=== PATIENT | female | born 1960 | race Caucasian/White ===

== ENCOUNTER 2017-05-20 10:43 | Emergency (ER) | payer BC ==
[~2017-05-20] VITALS: Ht 165.1 cm; Wt 74.8 kg
[~2017-05-20 10:43] MED LIST: ALIGN4 MG PO; BACLOFEN 10MG T10 MG PO; BISOPROLOL/HCTZ1 TA1 PO; NAPROXEN EC500 MG PO; PROPRANOLOL HCL20 MG PO
[2017-05-20] MEDS ORDERED: SERTRALINE 100100 MG PO (10:53)
--- NOTE | 2017-05-20 10:55 | Emergency Room Report ---
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 N Clinical Suspician of Infection? N Mental Status: 1 - Regular (Normal Baseline) Sepsis Risk:Low Sepsis Risk Have you (or family members/close friends) recently traveled outside the [place]? N If Yes, where/when: Have you had exposure to infectious disease within the past month? TB? Other? Specify: Comment The patient complains of pain in her LEFT flank and abdomen onset on Friday 2 days ago. She has not had vomiting. She has chronic diarrhea which is unchanged, no blood. No fever. No urinary symptoms. She has a history of Crohn's disease, prior bowel resection. She has been admitted here in 2006 and 2014 for partial small bowel obstruction. This pain is somewhat different in location, and is not accompanied by her typical vomiting with those conditions. ALLERGIES Coded Allergies: Iodine and Iodide Containing Produc (Mild, 05/20/17) codeine (Mild, 05/20/17) pentazocine (From TALWIN) (Mild, 05/20/17) Home Medications Active Scripts Bifidobacterium Infantis (Align) 4 MG PO DAILY #30 CAP Ref 1 Prov: 06/01/15 Reported Medications Sertraline Hydrochloride (Sertraline 100MG) 100 MG PO DAILY #30 Propranolol Hcl (Inderal 20MG. Tablet) 20 MG PO DAILY #60 BACLOFEN (Baclofen) 10 MG PO TID Propranolol Hcl 20 MG PO BID History Medical History General CAD? No Angina: No [place]: No Hypertension? Yes Hyperlipidemia? No CHF? No DVT? No PE? No COPD? No Asthma? No Anemia? Yes GERD? Yes Gastric ulcers? No GI Bleed? No Hernia? No Thyroid Problems? No Hypothyroidism? No CVA? No Seizures? No Diabetes? Yes Insulin Dependent: No Insulin Pump: No Home FSBS? No Renal Insuffiency? No End Stage Renal Disease? No UTI? No Stones? No BPH? No GB Disease: No Nephritic Syndrome? No Asplenia? No Hepatitis? No Sickle Cell Disease? No Arthritis? No Migraines? Yes Cataracts? No Glaucoma? No MRSA? No HIV? No TB? No Anxiety? Yes Depression? No Cancer? No More? 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 Physical Exam Vital Signs Vital Signs Date Time Temp Pulse Resp B/P Pulse O2 O2 Flow FiO2 Ox Delivery Rate 05/20 1311 98.0 78 18 152/92 98 05/20 1309 18 05/20 1126 78 18 152/92 98 05/20 1120 18 05/20 1048 98.0 83 18 156/107 99 General Appearance no apparent distress Eye Exam - bilateral eye normal exam, bilateral eye PERRL, bilateral eye EOMI Ear, Nose, Throat hearing grossly normal, normal ENT inspection Neck normal inspection, non-tender, supple, full range of motion Respiratory Status Yes: trachea midline, chest symmetrical. No: respiratory distress. Lung Sounds bilateral: normal breath sounds, lungs clear. Cardiovascular normal exam, regular rate/rhythm, no peripheral edema, no gallop, no JVD, no murmur, no rub, normal peripheral pulses Gastrointestinal normal bowel sounds, soft, no organomegaly, no guarding, no rebound, tenderness (LEFT lower quadrant) Back no CVA tenderness Extremities normal inspection Neurologic alert, oriented x 3 Mental status normal mood/affect Skin intact, normal color, warm/dry Medical Decision Making LABS/Meds/Orders Pt receiving controlled substance in ED? Yes [place] was queried for this patient? No Reason not queried - emergent pt cond=no time Results/Orders Laboratory Tests 05/20/17 1235: Urine Color YELLOW, Urine Appearance CLEAR, Urine pH 6.0, Ur Specific [place] 1.025, Urine Protein NEGATIVE, Urine Ketones NEGATIVE, Urine Blood TRACE-INTACT, Urine Nitrate NEGATIVE, Urine Bilirubin NEGATIVE, Urine Urobilinogen 0.2, Ur Leukocyte Esterase NEGATIVE, Urine RBC OCC, Urine WBC OCC, Ur Squamous Epith Cells NONE, Urine Bacteria TRACE, Urine Glucose NEGATIVE 05/20/171114: Sodium 141, Potassium 4.0, Chloride 105, Carbon Dioxide 28, BUN 8, Creatinine 0.9, Estimated Creat Clear 81, Estimated GFR (MDRD) 64, Glucose 93, Calcium 9.1, Total Bilirubin 0.5, AST 21, ALT 23, Alkaline Phosphatase 100, Total Protein 7.6 , Albumin 3.6, Globulin 4.0 H, Albumin/Globulin Ratio 0.9 L, Amylase 39, Lipase 145, WBC 5.1, RBC 4.26, Hgb 12.5, Hct 38.7, MCV 90.8, RDW 12.8, Plt Count 247, MPV 7.1 L, Gran % 55.5, Gran # 2.8, Lymphocytes % 36.5, Monocytes % 5.0, Eosinophils % 2.4, Basophils % 0.6, Lymphocytes # 1.9, Monocytes # 0.3, Eosinophils # 0.1, Basophils # 0.0, PUBS MCHC 32.4, MCH 29.4 Current Medication Orders Sig/Rosalba Start time Last Medication Dose Route Stop Time Status Admin Methylprednisolone 125 MG ONCE ONE 05/20 1300 DC 05/20 Sodium Succinate IV 05/20 1301 1308 Methylprednisolone 0 .STK-MED ONE 05/20 1300 DC Sodium Succinate .ROUTE Morphine Sulfate 4 MG ONCE ONE 05/20 1300 DCr 05/20 IV 05/20 1301 1309 Morphine Sulfate 0 .STK-MED ONE 05/20 1300 DCr .ROUTE Sodium Chloride 1,000 ML .STK-MED ONE 05/20 1120 DC IV Morphine Sulfate 0 .STK-MED ONE 05/20 111 DCr .ROUTE Ondansetron HCl 0 .STK-MED ONE 05/20 1119 DC .ROUTE Morphine Sulfate 4 MG ONCE ONE 05/20 1115 DCr 05/20 IV 05/20 1116 1120 Ondansetron HCl 4 MG ONCE ONE 05/20 1115 DC 05/20 IV 05/20 1116 1120 Sodium Chloride 1,000 ML .Q1H1M 05/20 111 DC 05/20 IV 05/20 1215 1121 Sodium Chloride 10 ML PRN PRN 05/20 1100 DCD IV 05/21 1056 Orders Procedure Date/time Status DIET-NOTHING BY MOUTH 05/[address] ABD/PELVIS REQ 05/20 1107 Active URINALYSIS/COMPLETE 05/20 1107 Complete IV SALINE LOCK 05/20 1056 Active LIPASE 05/20 1056 Complete CBC WITH AUTO DIFF 05/20 1056 Complete CHEM 12 PROFILE 05/20 1056 Complete AMYLASE 05/20 1056 Complete XRAY/CT/US XRAY/CT/US CT abdomen, pelvis Comment CT scan interpreted by radiologist: Scattered air-fluid levels in the small bowel consistent with enteritis. Departure Departure Disposition DC Home or Self Care(routine) Clinical Impression Primary Impression: Exacerbation of Crohn's disease Qualifiers: Digestive disease complication type: without complication Qualified Code: K50.90 - Crohn's disease, unspecified, without complications Condition STABLE Patient Instructions DI for Crohn's Disease Flare Additional Instructions Additional instructions for ABDOMINAL PAIN: See your physician as soon as possible for further evaluation. Return immediately if worsening abdominal pain, vomiting, shortness of breath, fever, vomiting of blood or abdominal distention. Prescriptions Current Visit Scripts Prednisone (Prednisone 10MG) 10 MG PO DAILY #27 TAB 6 po on days 1-2, then decrease dose by 1 pill per day until gone HYDROCODONE/ACETAMINOPHEN ([place] 5-325 Tablet) 1 TAB PO Q6HP PRN pain #10 TAB Ondansetron (Zofran 4MG Odt) 4 MG PO Q8HP PRN NAUSEA AND VOMITING #10 ODT ED Critical Care Critical Care No at 1540
[2017-05-20] MEDS ORDERED: INDERAL 20MG. T20 MG PO (10:58)
[2017-05-20 11:24] LABS: HEMOGLOBIN 12.5 g/dL (12.2-16.2); LYMPH # 1.9 K/mm3 (0.7-4.5); LYMPH % 36.5 % (10-50.0)
--- NOTE | 2017-05-20 12:03 | RADIOLOGY REPORT PS360 ---
CT ABD PELVIS W/O CONTRAST CLINICAL INDICATION: Left flank pain ABDOMINAL PAIN ORDERING PHYSICIAN: Taiwo Brower MD PATIENT AGE: 56 years COMPARISON: 05/29/2015 TECHNIQUE: Axial images obtained with sagittal and coronal reformats. PROCEDURE: Oral Contrast: None IV Contrast: None . FINDINGS: There are mild atelectatic changes in the lung bases. The liver, gallbladder, spleen, adrenal glands, and pancreas show no acute finding. There is mild prominence of the pancreatic head. This however is similar when compared to the previous exam. No peripancreatic fluid collection evident. No renal or ureteral calculi. No hydronephrosis. There does appear to be an ileocolic anastomosis in the proximal ascending colon region. There is minimal prominence of the bowel loops at the ileocolic anastomosis but no obvious intestinal obstruction or free air is evident. There are few scattered air-fluid levels within the small bowel in the mid abdominal region on cystic and could be related to enteritis. No evidence of diverticulitis. Uterus is anteverted containing dense calcification anteriorly consistent with a fibroid. There is a small umbilical hernia containing fat. IMPRESSION: 1. Postsurgical changes with ileocolic anastomosis in the right lower quadrant. There are a few air-fluid levels in the small bowel. Enteritis is a consideration. 2. Other nonacute findings as described above.
[2017-05-20 12:42] LABS: URINE BILIRUBIN - DIPSTICK NEGATIVE (NEG); URINE BLOOD TRACE-INTACT (NEG)
[2017-05-20] MEDS ORDERED: PREDNISONE 10MG10 MG PO (12:50)
[2017-05-20] MEDS ORDERED: NORCO 325 MG-51 TAB PO (12:50)
[2017-05-20] MEDS ORDERED: ZOFRAN ODT4 MG PO (12:50)
[2017-05-20 13:11] VITALS: BP 152/92
== END 2017-05-20 13:11 | disposition home or self-care (01) ==
LOC: ER 10:43
PROVIDERS: Emergency Medicine
DX: K50.90 Crohn's disease, unspecified, without complications (principal); I10 Essential (primary) hypertension; E11.9 Type 2 diabetes mellitus without complications; Z90.49 Acquired absence of other specified parts of digestive tract; Z79.899 Other long term (current) drug therapy
CPT/HCPCS: J2405

== ENCOUNTER 2017-07-09 12:15 | Emergency (ER) | payer BC ==
[~2017-07-09] VITALS: Ht 165.1 cm; Wt 81.6 kg
[~2017-07-09 12:15] MED LIST changes: +INDERAL 20MG. T20 MG PO; +NORCO 325 MG-51 TAB PO; +PREDNISONE 10MG10 MG PO; +SERTRALINE 100100 MG PO; +ZOFRAN ODT4 MG PO
--- OUTSIDE RECORDS SUMMARY | 2017-07-09 12:24 | External Medical Summary Rpt | CCD ---
Author Author , DIAMOND FIELDS Address Unknown Phone [email or web address] Purpose Continuity of Care Document - through 2016
--- OUTSIDE RECORDS SUMMARY | 2017-07-09 12:24 | External Medical Summary Rpt | CCD ---
Author Author , DIAMOND FIELDS Address Unknown Phone Immunization Name Date Rout CVX Reac Dose Comm Prov Is Faci e tion ent ider Refu lity Give sed n Infl 11-0 Intr 0.5 Hist PD20 No PD20 uenz 1-20 amus mL oric 255 255 a 17 cula al Quad r Info rmat W/Pr ion es - Sour ce Unsp ecif ied
--- OUTSIDE RECORDS SUMMARY | 2017-07-09 12:24 | External Medical Summary Rpt | CCD ---
Author Author , DIAMOND FIELDS Address Unknown Phone [email or web address] Purpose Continuity of Care Document - 05-20-2017 through 2016 Problems Code Diagnosis DOS Provider Status K50.90 CROHN'S DISEASE, UNSPECIFIED , WITHOUT COMPLICATIO NS K52.9 NONINFECTIV E GASTROENTER ITIS AND COLITIS, UNSPECIFIED K56.600 PARTIAL INTESTINAL OBSTRUCTION , UNSPECIFIED TO CAUSE K56.69 OTHER INTESTINAL OBSTRUCTION Results Labs Lab Lab Date Result Refere Interp Status Commen Order Detail nces retati t Range on Urinalysis with microscopy (05-20-2017 12:35) Urine CLEAR CLEAR complet appeara 017 CLEAR L ed nce 12:35 determi nation Bacteri TRACE O complet a 017 TRACE L ed detecti 12:35 on in urine sedimen t by Urine NEGATIV NEG complet total 017 E ed bilirub 12:35 NEGATIV in E L detecti on by test Urine TRACE-I NEG complet blood 017 NTACT ed detecti 12:35 TRACE-I on NTACT L Urine YELLOW YELLOW complet color 017 YELLOW ed 12:35 L Glucose = NEG complet ur 017 NEGATIV ed test 12:35 E strip Urine NEGATIV NEG complet ketones 017 E ed 12:35 NEGATIV detecti E L on by mg/dL automat ed vinny Mucus NEGATIV NEG complet detecti 017 E ed on in 12:35 NEGATIV urine E L sedimen t by lig Urine NEGATIV NEG complet nitrite 017 E ed 12:35 NEGATIV detecti E L on by test strip Urine = 6.0 5.0-8.5 complet pH 017 ed 12:35 Urine = NEG complet protein 017 NEGATIV ed 12:35 E mg/dL measure ment by automat ed t Erythro OCC OCC 0 complet cytes 017 L ed detecti 12:35 rbc/hpf on in urine sedimen t [place] NONE 0-5 complet s 017 NONE L ed epithel 12:35 #/hpf ial cells detecti on in u Urine 0.2 0.2 NEG complet urobili 017 L ed nogen 12:35 E.U./dL detecti on by test str Urine = OCC O complet leukocy 017 wbc/hpf ed vinny 12:35 count (number /volume ) Urine = 1.025 1.005-1 complet specifi 017 .030 ed c 12:35 gravity measure ment Urinalysis dipstick W Reflex Microscopic panel in Urine (05-20-2017 12:35) Bacteri TRACE O complet a 017 ed [Presen 12:35 ce] in Urine sedimen t by Light microsc opy Erythro OCC 0 complet cytes 017 ed [Presen 12:35 ce] in Urine sedimen t by Light microsc opy Epithel NONE 0#/hp complet ial 017 f - ed cells.s 12:35 5#/hp quamous f [Presen ce] in Urine sedimen t by Microsc opy high power field Urinalysis dipstick W Reflex Microscopic panel in Urine (05-20-2017 12:35) Appeara CLEAR CLEAR complet nce of 017 ed Urine 12:35 Bilirub NEGATIV NEG complet in 017 E ed [Presen 12:35 ce] in Urine by Test strip Erythro TRACE-I NEG complet cytes 017 NTACT ed [Presen 12:35 ce] in Urine Color YELLOW YELLOW complet of 017 ed Urine 12:35 Ketones NEGATIV NEG complet 017 E ed [Presen 12:35 ce] in Urine by Automat ed test strip Mucus NEGATIV NEG complet [Presen 017 E ed ce] in 12:35 Urine sedimen t by Light microsc opy Nitrite NEGATIV NEG complet 017 E ed [Presen 12:35 ce] in Urine by Test strip Urobili 0.2 NEG complet nogen 017 ed [Presen 12:35 ce] in Urine by Test strip CBC w auto diff (05-20-2017 11:15) Automat = 0.0 0-0.2 complet ed 017 K/MM3 ed blood 11:15 basophi l count (count/ vo Baso % = 0.6 % 0.1-2.0 complet 017 ed 11:15 Automat = 0.1 0.0-0.4 complet ed 017 K/mm3 ed blood 11:15 eosinop hil count Automat = 2.4 % 0.1-12. complet ed 017 0 ed blood 11:15 eosinop hils/10 0 leukocy t Blood = 2.8 1.8-7.8 complet granulo 017 K/mm3 ed cytes 11:15 automat ed count (numb Granulo = 55.5 37.0-80 complet cyte 017 % .0 ed percent 11:15 age Blood = 38.7 37.0-47 complet hematoc 017 % .0 ed rit 11:15 (volume fractio n) Blood = 12.5 12.2-16 complet hemoglo 017 g/dL .2 ed bin 11:15 measure ment (mass/v olum Absolut = 1.9 0.7-4.5 complet e 017 K/mm3 ed lymphoc 11:15 yte count Lymphoc = 36.5 10-50.0 complet yte 017 % ed count, 11:15 blood, automat ed Mean = 29.4 27-31.2 complet corpusc 017 pg ed ular 11:15 hemoglo bin (MCH) determ Automat = 32.4 31.8-35 complet ed 017 g/dl .4 ed erythro 11:15 cyte mean corpusc ular h Automat = 90.8 82.2-97 complet ed 017 fl .8 ed erythro 11:15 cyte mean corpusc ular v Absolut 10-17-2 = 0.3 0.1-1.0 complet e 017 K/mm3 ed monocyt 11:15 e count [place] % = 5.0 % 1.7-9.3 complet 017 ed 11:15 Automat = 7.1 7.4-10. complet ed 017 fl 4 ed blood 11:15 platele t mean volume shahid Blood = 247 142-424 complet platele 017 K/mm3 ed t count 11:15 Red = 4.26 4.2-5.4 complet blood 017 M/mm3 ed cell 11:15 count Automat = 12.8 11.5-17 complet ed 017 % .5 ed erythro 11:15 cyte distrib ution width Blood = 5.1 4.8-10. complet leukocy 017 K/MM3 8 ed vinny 11:15 count (number /volume ) Amylase ser/plas (05-20-2017 11:15) Amylase = 39 25-115 complet 017 U/L ed ser/victor hugo 11:15 s Comprehensive metabolic panel (05-20-2017 11:15) Serum = 0.9 1.1-1.8 complet or 017 ed plasma 11:15 albumin /globul in mass ra Serum = 3.6 3.4-5.0 complet or 017 gm/dL ed plasma 11:15 albumin measure ment (mas Serum = 100 46-116 complet or 017 U/L ed plasma 11:15 alkalin e phospha tase shahid Serum = 0.5 0.2-1.0 complet or 017 mg/dL ed plasma 11:15 total bilirub in measure m Serum = 8 7-18 complet or 017 mg/dL ed plasma 11:15 urea nitroge n measure men Serum = 9.1 8.5-10. complet or 017 mg/dL 1 ed plasma 11:15 calcium measure ment (mas Serum = 105 98-107 complet or 017 mmoL/L ed plasma 11:15 chlorid e measure ment (mo Carbon = 28 21.0-32 complet dioxide 017 mmoL/L .0 ed 11:15 measure ment Serum = 0.9 0.55-1. complet or 017 mg/dL 02 ed plasma 11:15 creatin ine measure ment ( Estimat = 81 50-200 complet ion of 017 ML/MIN ed creatin 11:15 ine renal clearan ce Estimat = 64 59- complet ed 017 ML/MIN ed glomeru 11:15 lar filtrat ion rate (GF Comment: REFERENCE RANGE: >60 ML/MIN/1.73 SQUARE METERS Comment: If this patient is -Stateless, then multiply the Comment: result by 1.210. Serum = 4.0 1.3-3.2 complet globuli 017 gm/dL ed n 11:15 measure ment (mass/v olume) Serum = 93 74-106 complet or 017 mg/dL ed plasma 11:15 glucose measure ment (mas Serum = 4.0 3.5-5.1 complet potassi 017 mmoL/L ed um 11:15 measure ment Serum = 141 136-145 complet sodium 017 mmoL/L ed measure 11:15 ment Serum = 21 15-37 complet or 017 U/L ed plasma 11:15 asparta te aminotr ansfera ALT = 23 12-78 complet (SGPT) 017 U/L ed ser/victor hugo 11:15 s Protein = 7.6 6.4-8.2 complet total 017 gm/dL ed ser/victor hugo 11:15 s Lipase measurement (05-20-2017 11:15) Lipase = 145 73-393 complet measure 017 U/L ed ment 11:15
--- OUTSIDE RECORDS SUMMARY | 2017-07-09 12:24 | External Medical Summary Rpt | CCD ---
Author Author , DIAMOND FIELDS Address Unknown Phone [email or web address] Purpose Continuity of Care Document - through 2016
--- OUTSIDE RECORDS SUMMARY | 2017-07-09 12:24 | External Medical Summary Rpt | CCD ---
Author Author , DIAMOND FIELDS Address Unknown Phone [email or web address] Purpose Continuity of Care Document - 05-20-2017 [...] 017 K/mm3 ed monocyt 11:15 e count [place] % = 5.0 % 1.7-9.3 complet 017 [...] SQUARE METERS Comment: If this patient is -[place]unisian, then multiply the Comment: result by 1.210. [...]
--- OUTSIDE RECORDS SUMMARY | 2017-07-09 12:25 | External Medical Summary Rpt ---
Author Author [facility] Briseno, [employer] Organization [employer] Address Unknown Phone Unavailable Results Urinalysis dipstick W Reflex Microscopic panel in Urine Observa Value Referen Units Interpr Notes Date tion ce etation Range Appeara CLEAR CLEAR No No No May 20 nce of informa informa informa 2016 Urine tion in tion in tion in 12:35 source source source PM data data data Bacteri TRACE O No No No May 20 a informa informa informa 2016 [Presen tion in tion in tion in 12:35 ce] in source source source PM Urine data data data sedimen t by Light microsc opy Bilirub NEGATIV NEG No No No May 20 in E informa informa informa 2016 [Presen tion in tion in tion in 12:35 ce] in source source source PM Urine data data data by Test strip Erythro TRACE-I NEG No No No May 20 cytes NTACT informa informa informa 2016 [Presen tion in tion in tion in 12:35 ce] in source source source PM Urine data data data Color YELLOW YELLOW No No No May 20 of informa informa informa 2016 Urine tion in tion in tion in 12:35 source source source PM data data data Glucose NEG No No No May 20 [Mass/vol informati informati informati 2017 ume] in on in on in on in 12:35 PM Urine by source source source Test data data data strip Ketones NEGATIV NEG mg/dL No No May 20 E informa informa 2016 [Presen tion in tion in 12:35 ce] in source source PM Urine data data by Automat ed test strip Mucus NEGATIV NEG No No No May 20 [Presen E informa informa informa 2016 ce] in tion in tion in tion in 12:35 Urine source source source PM sedimen data data data t by Light microsc opy Nitrite NEGATIV NEG No No No May 20 E informa informa informa 2016 [Presen tion in tion in tion in 12:35 ce] in source source source PM Urine data data data by Test strip pH of 5.0 - 8.5 No Normal No May 20 Urine informati informati 2017 on in on in 12:35 PM source source data data Protein NEG mg/dL No No May 20 [Mass/vol informati informati 2016 ume] in on in on in 12:35 PM Urine by source source Automated data data test strip Erythro OCC 0 rbc/hpf No No May 20 cytes informa informa 2016 [Presen tion in tion in 12:35 ce] in source source PM Urine data data sedimen t by Light microsc opy Specific 1.005 - No Normal No May 20 gravity 1.030 informati informati 2016 of Urine on in on in 12:35 PM source source data data Epithel NONE 0 - 5 #/hpf No No May 20 ial informa informa 2017 cells.s tion in tion in 12:35 quamous source source PM data data [Presen ce] in Urine sedimen t by Microsc opy high power field Urobili 0.2 NEG E.U./dL No No May 20 nogen informa informa 2016 [Presen tion in tion in 12:35 ce] in source source PM Urine data data by Test strip Leukocyte O wbc/hpf No No May 20 s informati informati 2016 [#/volume on in on in 12:35 PM ] in source source Urine data data Urinalysis dipstick W Reflex Microscopic panel in Urine Observa Value Referen Units Interpr Notes Date tion ce etation Range Appeara CLEAR CLEAR No No No May 20 nce of informa informa informa 2016 Urine tion in tion in tion in 12:35 source source source PM data data data Bilirub NEGATIV NEG No No No May 20 in E informa informa informa 2016 [Presen tion in tion in tion in 12:35 ce] in source source source PM Urine data data data by Test strip Erythro TRACE-I NEG No No No May 20 cytes NTACT informa informa informa 2016 [Presen tion in tion in tion in 12:35 ce] in source source source PM Urine data data data Color YELLOW YELLOW No No No May 20 of informa informa informa 2016 Urine tion in tion in tion in 12:35 source source source PM data data data Glucose NEG No No No May 20 [Mass/vol informati informati informati 2016 ume] in on in on in on in 12:35 PM Urine by source source source Test data data data strip Ketones NEGATIV NEG mg/dL No No May 20 E informa informa 2016 [Presen tion in tion in 12:35 ce] in source source PM Urine data data by Automat ed test strip Mucus NEGATIV NEG No No No May 20 [Presen E informa informa informa 2016 ce] in tion in tion in tion in 12:35 Urine source source source PM sedimen data data data t by Light microsc opy Nitrite NEGATIV NEG No No No May 20 E informa informa informa 2016 [Presen tion in tion in tion in 12:35 ce] in source source source PM Urine data data data by Test strip pH of 5.0 - 8.5 No Normal No May 20 Urine informati informati 2016 on in on in 12:35 PM source source data data Protein NEG mg/dL No No May 20 [Mass/vol informati informati 2016 ume] in on in on in 12:35 PM Urine by source source Automated data data test strip Specific 1.005 - No Normal No May 20 gravity 1.030 informati informati 2016 of Urine on in on in 12:35 PM source source data data Urobili 0.2 NEG E.U./dL No No May 20 nogen informa informa 2016 [Presen tion in tion in 12:35 ce] in source source PM Urine data data by Test strip Amylase [Enzymatic activity/volume] in Serum or Plasma Observa Value Referen Units Interpr Notes Date tion ce etation Range Amylase 25 - 115 U/L Normal No May 20 [Enzymati informati 2016 c on in 11:15 AM activity/ source volume] data in Serum or Plasma Comprehensive metabolic 2000 panel in Serum or Plasma Observa Value Referen Units Interpr Notes Date tion ce etation Range Albumin/G 1.1 - 1.8 No Low No May 17 lobulin informati informati 2016 [Mass on in on in 11:15 AM ratio] in source source Serum or data data Plasma Albumin 3.4 - 5.0 gm/dL Normal No May 17 [Mass/vol informati 2017 ume] in on in 11:15 AM Serum or source Plasma data Alkaline 46 - 116 U/L Normal No May 20 phosphata informati 2016 se on in 11:15 AM [Enzymati source c data activity/ volume] in Serum or Plasma Bilirubin 0.2 - 1.0 mg/dL Normal No May 17 .total informati 2016 [Mass/vol on in 11:15 AM ume] in source Serum or data Plasma Urea 7 - 18 mg/dL Normal No May 20 nitrogen informati 2016 [Mass/vol on in 11:15 AM ume] in source Serum or data Plasma Calcium 8.5 - mg/dL Normal No May 20 [Mass/vol 10.1 informati 2016 ume] in on in 11:15 AM Serum or source Plasma data Chloride 98 - 107 mmoL/L Normal No May 20 [Moles/vo informati 2016 lume] in on in 11:15 AM Serum or source Plasma data Carbon 21.0 - mmoL/L Normal No May 17 dioxide, 32.0 informati 2017 total on in 11:15 AM [Moles/vo source lume] in data Serum or Plasma Creatinin 0.55 - mg/dL Normal No May 17 e 1.02 informati 2016 [Mass/vol on in 11:15 AM ume] in source Serum or data Plasma Creatinin 50 - 200 ML/MIN Normal No May 17 e renal informati 2017 clearance on in 11:15 AM source predicted data by Cockcroft -Gault formula Estimated 59- ML/MIN No REFERENCE May 17 informati RANGE: 2017 glomerula on in >60 11:15 AM r source ML/MIN/1. filtratio data 73 SQUARE n rate METERSIf (GF this patient is -A merican, then multiply theresult by 1.210. Globulin 1.3 - 3.2 gm/dL High No May 17 [Mass/vol informati 2017 ume] in on in 11:15 AM Serum source data Glucose 74 - 106 mg/dL Normal No May 20 [Mass/vol informati 2017 ume] in on in 11:15 AM Serum or source Plasma data Potassium 3.5 - 5.1 mmoL/L Normal No May 17 informati 2016 [Moles/vo on in 11:15 AM lume] in source Serum or data Plasma Sodium 136 - 145 mmoL/L Normal No May 20 [Moles/vo informati 2016 lume] in on in 11:15 AM Serum or source Plasma data Aspartate 15 - 37 U/L Normal No May 202016 aminotran on in 11:15 AM sferase source [Enzymati data c activity/ volume] in Serum or Plasma Alanine 12 - 78 U/L Normal No May 20 aminotran 2016 sferase on in 11:15 AM [Enzymati source c data activity/ volume] in Serum or Plasma Protein 6.4 - 8.2 gm/dL Normal No May 20 [Mass/vol informati 2016 ume] in on in 11:15 AM Serum or source Plasma data Lipase [Enzymatic activity/volume] in Serum or Plasma Observa Value Referen Units Interpr Notes Date tion ce etation Range Lipase 73 - 393 U/L Normal No May 20 [Enzymati informati 2016 c on in 11:15 AM activity/ source volume] data in Serum or Plasma CBC W Auto Differential panel in Blood Observa Value Referen Units Interpr Notes Date tion ce etation Range Basophils 0 - 0.2 K/MM3 Normal No May 202016 [#/volume on in 11:15 AM ] in source Blood by data Automated count Basophils 0.1 - 2.0 % Normal No May 20 /2016 leukocyte on in 11:15 AM s in source Blood by data Automated count Eosinophi 0.0 - 0.4 K/mm3 Normal No May 20 ls 2016 [#/volume on in 11:15 AM ] in source Blood by data Automated count Eosinophi 0.1 - % Normal No May 20 ls/100 12.0 2016 leukocyte on in 11:15 AM s in source Blood by data Automated count Granulocy 1.8 - 7.8 K/mm3 Normal No May 20 vinny 2016 [#/volume on in 11:15 AM ] in source Blood by data Automated count Granulocy 37.0 - % Normal No May 20 vinny/100 80.0 2016 leukocyte on in 11:15 AM s in source Blood by data Automated count Hematocri 37.0 - % Normal No May 20 t [Volume 47.0 2016 on in 11:15 AM Fraction] source of Blood data Hemoglobi 12.2 - g/dL Normal No May 20 n 16.2 informati 2016 [Mass/vol on in 11:15 AM ume] in source Blood data Lymphocyt 0.7 - 4.5 K/mm3 Normal No May 20 es inform2016 [#/volume on in 11:15 AM ] in source Unspecifi data ed specimen by Automated count Lymphocyt 10 - 50.0 % Normal No May 20 es informati 2016 [#/volume on in 11:15 AM ] in source Unspecifi data ed specimen by Automated count Erythrocy 27 - 31.2 pg Normal No May 20 te mean inform2016 corpuscul on in 11:15 AM ar source hemoglobi data n [Entitic mass] Erythrocy 31.8 - g/dl Normal No May 20 te mean 35.4 inform2016 corpuscul on in 11:15 AM ar source hemoglobi data n concentra tion [Mass/vol ume] by Automated count Erythrocy 82.2 - fl Normal No May 20 te mean 97.8 inform2016 corpuscul on in 11:15 AM ar volume source [Entitic data volume] by Automated count Monocytes 0.1 - 1.0 K/mm3 Normal No May 20 inform2016 [#/volume on in 11:15 AM ] in source Blood by data Automated count Monocytes 1.7 - 9.3 % Normal No May 20 /100 2016 leukocyte on in 11:15 AM s in source Blood by data Automated count Platelet 7.4 - fl Low No May 20 mean 10.4 inform2016 volume on in 11:15 AM [Entitic source volume] data in Blood by Automated count Platelets 142 - 424 K/mm3 Normal No May 20 informati 2016 [#/volume on in 11:15 AM ] in source Blood data Erythrocy 4.2 - 5.4 M/mm3 Normal No May 20 vinny informati 2016 [#/volume on in 11:15 AM ] in source Amniotic data fluid Erythrocy 11.5 - % Normal No May 20 te 17.5 2016 distribut on in 11:15 AM ion width source [Entitic data volume] by Automated count Leukocyte 4.8 - K/MM3 Normal No May 20 s 10.8 informati 2016 [#/volume on in 11:15 AM ] in source Blood data
--- NOTE | 2017-07-09 12:46 | Urgent Treatment Center Report ---
History of Present Issue Date/Time Seen by Provider 07/09/17 1239 Visit Reason Pt arrived:Walked Presenting Problem:PT TRIPPED ON A ROCK SIDEWALK LAST NIGHT AND INJURIED HER RT WRIST. SHE HAS TAKEN 3 EX STRENGTH TYLENOL TODAY. Location if Accident:Home Onset of symptoms date/time:07/08/17/ or onset unknown for:MEDICAL HX UNKNOWN Have you (or family members/close friends) recently traveled outside the [place]? N If Yes, where/when: Have you had exposure to infectious disease within the past month? TB? Other? Specify: c/o rt wrist pain, tripped last night around 10pm, pain rt lateral and medial wrist primarily, 5th digit feels tingly, tylenol helps "somewhat", not sure if she can take motrin because they always tell her to stick with tylenol, not moving wrist helps more Source patient Exam Limitations no limitations ALLERGIES Coded Allergies: Iodine and Iodide Containing Produc (Mild, 05/20/17) codeine (Mild, 05/20/17) pentazocine (From [employer]) (Mild, 05/20/17) Home Medications Active Scripts Bifidobacterium Infantis (Align) 4 MG PO DAILY #30 CAP Ref 1 Prov: 06/01/15 HYDROCODONE/ACETAMINOPHEN ([place] 5-325 Tablet) 1 TAB PO Q6HP PRN pain #10 TAB Prov: 05/20/17 Ondansetron (Zofran 4MG Odt) 4 MG PO Q8HP PRN NAUSEA AND VOMITING #10 ODT Prov: 05/20/17 Reported Medications Sertraline Hydrochloride (Sertraline 100MG) 100 MG PO DAILY #30 Propranolol Hcl (Inderal 20MG. Tablet) 20 MG PO DAILY #60 BACLOFEN (Baclofen) 10 MG PO TID Propranolol Hcl 20 MG PO BID History Medical History General CAD? No Angina: No [place]: No Hypertension? Yes Hyperlipidemia? No CHF? No DVT? No PE? No COPD? No Asthma? No Anemia? Yes GERD? Yes Gastric ulcers? No GI Bleed? No Hernia? No Thyroid Problems? No Hypothyroidism? No CVA? No Seizures? No Diabetes? Yes Insulin Dependent: No Insulin Pump: No Home FSBS? No Renal Insuffiency? No UTI? No Stones? No BPH? No GB Disease: No Nephritic Syndrome? No Asplenia? No Hepatitis? No Sickle Cell Disease? No Arthritis? No Migraines? Yes Cataracts? No Glaucoma? No MRSA? No HIV? No TB? No Anxiety? Yes Depression? No Cancer? No More? No Immunization HX DT/Tetanus 1-4 YRS Flu 2014-16FSN Pneumonia Received In Past Surgical Hx Previous Surgery?Y BOWEL RESECTION D & C ADHESIONS Family History Family HX Diabetes No CAD No Hypertension No Hyperlipidemia No Cancer No TB No Social History Smoking Hx Smoker: Never Smoker Tobacco: No Packs/day N/A Alcohol Alcohol: No Review of Systems All Other Systems Reviewed and Negative (as appropriate for CC) Musculoskeletal see HPI Skin denies change in color, denies lesions, denies lumps Psychiatric/Neurological see HPI Physical Exam Vital Signs Vital Signs Date Time Temp Pulse Resp B/P Pulse O2 O2 Flow FiO2 Ox Delivery Rate 07/09 1309 97.9 62 18 156/86 98 07/09 1236 97.9 62 18 156/86 98 General Appearance mild distress (guarding rt wrist) Respiratory Status No: respiratory distress. Cardiovascular no peripheral edema Peripheral Pulses Pulses normal Yes (favio radial) Extremities rt wrist: mild edema dorsal side, distal radius; mild snuffbox tenderness; moderate distal ulna ttp; limited ROM wrist with FROM all digits, elbow and shoulder Strength 5 Upper Ext (L) (prop attendant 5/5), 5 Upper Ext (R) (prop attendant 4/5, pain in wrist) Neurologic alert, no motor/sensory deficits (on exam), oriented x 3 Skin intact, normal color, warm/dry Medical Decision Making LABS/Meds/Orders Pt receiving controlled substance in ED? No Results/Orders Orders Procedure Date/time Status STABILIZE JOINT 07/09 1302 Active XRAY/CT/US XRAY/CT/US XRAY wrist (right) XR interpretation by reviewed by me (w/ GODFREY Peres MD) Xray Results no acute findings Departure Departure Time of Disposition 1304 Disposition DC Home or Self Care(routine) Clinical Impression Primary Impression: Right wrist sprain Qualifiers: Encounter type: initial encounter Qualified Code: S63.501A - Unspecified sprain of right wrist, initial encounter Condition STABLE Referrals Shahid KRISHNAN,Tommie (Family) IMMEDIATELY for new or worsening symptoms OR no noticeable improvement over the next 3-5 days Patient Instructions DI for Wrist Sprain, How To Perform RICE (Rest, Ice, Compress, Elevate), How to Use a Sling Additional Instructions * use as tolerated, if painful stop whatever it is you are doing * Rest * ice 15-20 mins 3-4 times a day * wrist brace for support and swelling unless in shower. Be sure not too tight but not too loose either * Elevate as discussed as much as possible to help reduce swelling and therefore , pain * tylenol every 4-6 hours as needed. Check with your primary care before taking motrin Discharge Counseling Counseled pt/family regarding diagnosis, test results, medications/RX, home care, follow up needs at 0910
--- NOTE | 2017-07-09 12:46 | Urgent Treatment Center Report ---
History of Present Issue Date/Time Seen by Provider 07/09/17 1239 Visit Reason Pt arrived:Walked Presenting Problem:PT TRIPPED ON A ROCK SIDEWALK LAST NIGHT AND INJURIED HER RT WRIST. SHE HAS TAKEN 3 EX STRENGTH TYLENOL TODAY. Location if Accident:Home Onset of symptoms date/time:07/08/17/ or onset unknown for:MEDICAL HX UNKNOWN Have you (or family members/close friends) recently traveled outside the [place]? N If Yes, where/when: Have you had exposure to infectious disease within the past month? TB? Other? Specify: c/o rt wrist pain, tripped last night around 10pm, pain rt lateral and medial wrist primarily, 5th digit feels tingly, tylenol helps "somewhat", not sure if she can take motrin because they always tell her to stick with tylenol, not moving wrist helps more Source patient Exam Limitations no limitations ALLERGIES Coded Allergies: Iodine and Iodide Containing Produc (Mild, 05/20/17) codeine (Mild, 05/20/17) pentazocine (From [employer]) (Mild, 05/20/17) Home Medications Active Scripts Bifidobacterium Infantis (Align) 4 MG PO DAILY #30 CAP Ref 1 Prov: 06/01/15 HYDROCODONE/ACETAMINOPHEN ([place] 5-325 Tablet) 1 TAB PO Q6HP PRN pain #10 TAB Prov: 05/20/17 Ondansetron (Zofran 4MG Odt) 4 MG PO Q8HP PRN NAUSEA AND VOMITING #10 ODT Prov: 05/20/17 Reported Medications Sertraline Hydrochloride (Sertraline 100MG) 100 MG PO DAILY #30 Propranolol Hcl (Inderal 20MG. Tablet) 20 MG PO DAILY #60 BACLOFEN (Baclofen) 10 MG PO TID Propranolol Hcl 20 MG PO BID History Medical History General CAD? No Angina: No [place]: No Hypertension? Yes Hyperlipidemia? No CHF? No DVT? No PE? No COPD? No Asthma? No Anemia? Yes GERD? Yes Gastric ulcers? No GI Bleed? No Hernia? No Thyroid Problems? No Hypothyroidism? No CVA? No Seizures? No Diabetes? Yes Insulin Dependent: No Insulin Pump: No Home FSBS? No Renal Insuffiency? No UTI? No Stones? No BPH? No GB Disease: No Nephritic Syndrome? No Asplenia? No Hepatitis? No Sickle Cell Disease? No Arthritis? No Migraines? Yes Cataracts? No Glaucoma? No MRSA? No HIV? No TB? No Anxiety? Yes Depression? No Cancer? No More? No Immunization HX DT/Tetanus 1-4 YRS Flu 2014-16FSN Pneumonia Received In Past Surgical Hx Previous Surgery?Y BOWEL RESECTION D & C ADHESIONS Family History Family HX Diabetes No CAD No Hypertension No Hyperlipidemia No Cancer No TB No Social History Smoking Hx Smoker: Never Smoker Tobacco: No Packs/day N/A Alcohol Alcohol: No Review of Systems All Other Systems Reviewed and Negative (as appropriate for CC) Musculoskeletal see HPI Skin denies change in color, denies lesions, denies lumps Psychiatric/Neurological see HPI Physical Exam Vital Signs Vital Signs Date Time Temp Pulse Resp B/P Pulse O2 O2 Flow FiO2 Ox Delivery Rate 07/09 1309 97.9 62 18 156/86 98 07/09 1236 97.9 62 18 156/86 98 General Appearance mild distress (guarding rt wrist) Respiratory Status No: respiratory distress. Cardiovascular no peripheral edema Peripheral Pulses Pulses normal Yes (favio radial) Extremities rt wrist: mild edema dorsal side, distal radius; mild snuffbox tenderness; moderate distal ulna ttp; limited ROM wrist with FROM all digits, elbow and shoulder Strength 5 Upper Ext (L) (spiral tube winder helper 5/5), 5 Upper Ext (R) (spiral tube winder helper 4/5, pain in wrist) Neurologic alert, no motor/sensory deficits (on exam), oriented x 3 Skin intact, normal color, warm/dry Medical Decision Making LABS/Meds/Orders Pt receiving controlled substance in ED? No Results/Orders Orders Procedure Date/time Status STABILIZE JOINT 07/09 1302 Active XRAY/CT/US XRAY/CT/US XRAY wrist (right) XR interpretation by reviewed by me (w/ GODFREY Peres MD) Xray Results no acute findings Departure Departure Time of Disposition 1304 Disposition DC Home or Self Care(routine) Clinical Impression Primary Impression: Right wrist sprain Qualifiers: Encounter type: initial encounter Qualified Code: S63.501A - Unspecified sprain of right wrist, initial encounter Condition STABLE Referrals Shahid KRISHNAN,Tommie (Family) IMMEDIATELY for new or worsening symptoms OR no noticeable improvement over the next 3-5 days Patient Instructions DI for Wrist Sprain, How To Perform RICE (Rest, Ice, Compress, Elevate), How to Use a Sling Additional Instructions * use as tolerated, if painful stop whatever it is you are doing * Rest * ice 15-20 mins 3-4 times a day * wrist brace for support and swelling unless in shower. Be sure not too tight but not too loose either * Elevate as discussed as much as possible to help reduce swelling and therefore , pain * tylenol every 4-6 hours as needed. Check with your primary care before taking motrin Discharge Counseling Counseled pt/family regarding diagnosis, test results, medications/RX, home care, follow up needs at 0910
[2017-07-09 13:09] VITALS: BP 156/86
--- NOTE | 2017-07-09 13:13 | RADIOLOGY REPORT PS360 ---
WRIST-3 VIEWS-RT HISTORY: Pain following injury FELL 07/08 ORDERING PHYSICIAN: COLETTE ABRAHAM APRN PATIENT AGE: 56 years COMPARISON: None FINDINGS: No fracture or dislocation. No lytic or blastic change. There is normal mineralization.. The joint spaces are well-preserved. No significant degenerative/arthritic changes. No erosive changes evident.. IMPRESSION: Negative wrist
== END 2017-07-09 13:20 | disposition home or self-care (01) ==
LOC: UTC 12:15
DX: S63.501A Unspecified sprain of right wrist, initial encounter (principal); W18.09XA Striking against other object with subsequent fall, initial encounter